=== PATIENT | female | born 1965 | race Two or more races ===

== ENCOUNTER 2020-06-08 08:48 | Outpatient (CLI) | payer OTHER | END 2020-06-08 09:10 | disposition home or self-care (01) | LOC: RX STUDY 08:48 | PROVIDERS: ATTEND Internal Medicine | DX: R13.19 Other dysphagia (principal) ==

== ENCOUNTER 2020-12-15 07:50 | Outpatient (CLI) | payer OTHER | END 2020-12-15 07:55 | disposition home or self-care (01) | LOC: SONOGRAMA 07:50 | PROVIDERS: ATTEND Internal Medicine | DX: E04.2 Nontoxic multinodular goiter (principal); E04.8 Other specified nontoxic goiter ==

== ENCOUNTER 2021-03-22 08:00 | Outpatient (CLI) | payer OTHER | END 2021-03-22 08:30 | disposition home or self-care (01) | LOC: PPH VACUNA 08:00 | PROVIDERS: ATTEND Emergency Medicine Pediatric Emergency Medicine | DX: Z23 Encounter for immunization (principal) ==

== ENCOUNTER 2021-03-22 09:41 | Outpatient (CLI) | payer OTHER | END 2021-03-22 09:44 | disposition home or self-care (01) | LOC: SONOGRAMA 09:41 | PROVIDERS: ATTEND Pathology Anatomic Pathology & Clinical Pathology | DX: E04.2 Nontoxic multinodular goiter (principal); D34 Benign neoplasm of thyroid gland ==

== ENCOUNTER 2021-10-11 07:52 | Outpatient (CLI) | payer OTHER | END 2021-10-11 08:04 | disposition home or self-care (01) | LOC: LAB 07:52 | DX: G40.909 Epilepsy, unspecified, not intractable, without status epilepticus (principal); E78.00 Pure hypercholesterolemia, unspecified; D32.9 Benign neoplasm of meninges, unspecified; G62.9 Polyneuropathy, unspecified; I70.0 Atherosclerosis of aorta; E04.9 Nontoxic goiter, unspecified ==

== ENCOUNTER 2021-10-11 09:00 | Outpatient (CLI) | payer OTHER | END 2021-10-11 09:15 | disposition home or self-care (01) | LOC: PPH VACUNA 09:00 | PROVIDERS: ATTEND Emergency Medicine Pediatric Emergency Medicine | DX: Z23 Encounter for immunization (principal) ==

== ENCOUNTER 2021-10-12 07:29 | Outpatient (CLI) | payer OTHER | END 2021-10-12 07:36 | disposition home or self-care (01) | LOC: MAMO-SONO 07:29 | PROVIDERS: ATTEND Internal Medicine | DX: Z12.39 Encounter for other screening for malignant neoplasm of breast (principal); E78.00 Pure hypercholesterolemia, unspecified; G40.909 Epilepsy, unspecified, not intractable, without status epilepticus; I00 Rheumatic fever without heart involvement; E04.9 Nontoxic goiter, unspecified ==